=== PATIENT | male | born 1960 | race Caucasian/White ===

== ENCOUNTER 2017-03-16 09:09 | Emergency (ER) | payer OTHER ==
[2017-03-16 09:15] VITALS: BP 102/77; PULSE 65; RESP 16; TEMP 97.9; O2SAT 97
--- NOTE | 2017-03-16 09:41 | EDPHY ---
H & P Time Seen by Provider: 03/16/17 09:16 HPI/ROS: CHIEF COMPLAINT: Left finger crush injury HISTORY OF PRESENT ILLNESS: 56-year-old [id number] male, up-to-date tetanus, has simply got his left pinky digit closed in a car door yesterday. Complaining of pain, erythema. PHYSICAL EXAM (Prior to examination, patient consented to physical exam, hands were washed and my usual and customary physical exam procedures followed) 1) GENERAL: Well-developed, well-nourished, alert and oriented. Appears to be in no acute distress. 2) HEAD: Normocephalic 3) HEENT: sclera anicteric 4) LUNGS: Breathing comfortably. 5) SKIN: Abrasion to the dorsal aspect Smoking Status: Never smoked Constitutional: Initial Vital Signs Temperature (C) 36.6 C 03/16/17 09:12 Heart Rate 65 03/16/17 09:12 Respiratory Rate 16 03/16/17 09:12 Blood Pressure 102/77 03/16/17 09:12 O2 Sat (%) 97 03/16/17 09:12 O2 Delivery Mode Room Air Allergies/Adverse Reactions: No Known Allergies Allergy (Verified 03/16/17 09:11) Home Medications: Medication Instructions Recorded Cephalexin [Keflex] 500 mg PO TID 7 Days cap 03/16/17 MDM/Departure - MDM Procedures: Procedure: Nail trephination. Indication: Subungual hematoma. Anesthesia: None required. Verbal consent was obtained from the patient to drain a subungual hematoma. The patient was prepped in the usual fashion. The subungual hematoma was drained with electrocautery. The subungual hematoma was drained successfully and there were no complications. The procedure was performed by myself. ED Course/Re-evaluation: This patient has subungual hematoma which was drained in the ER. He also has evidence of paronychia without fluctuance or indication for drainage at this time. I am starting him on Keflex. He has also been informed that I am unable to fully assess his flexor extensor function injury to soft tissue swelling and pain at this time. 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 Miguel A Mccoy. Recommend elevation and usual and customary discharge precautions and instructions provided. Care of patient under supervision of secondary supervising physician Dr Rome Barker. - Depart Disposition: Home, Routine, Self-Care Clinical Impression: Paronychia of left little finger Subungual hematoma of left little finger Qualifiers: Encounter type: initial encounter Qualified Code(s): S60.152A - Contusion of left little finger with damage to nail, initial encounter Condition: Good Instructions: Paronychia (ED), Subungual Hematoma (ED) Additional Instructions: Return to the ER if you develop redness, swelling, discharge, warmth to the wound, red streaks going up your arm or any other symptoms that concern you. Prescriptions: Cephalexin [Keflex] 500 mg PO TID 7 Days cap Referrals: Miguel A Mccoy MD [Medical Doctor] - 5-7 days, call for appt. (Dr. Miguel A Mccoy is a hand surgeon)
== END 2017-03-16 10:00 | disposition home or self-care (01) ==
PROC: 0H9QXZZ Drainage of Finger Nail, External Approach (ICD-10-PCS; principal; 2017-03-16)
DX: L03.012 Cellulitis of left finger (principal); S60.152A Contusion of left little finger with damage to nail, initial encounter; W23.0XXA Caught, crushed, jammed, or pinched between moving objects, initial encounter